=== PATIENT | male | born 1975 | race Caucasian/White ===

== ENCOUNTER 2017-11-04 06:56 | Day surgery (SDC) | payer OTHER ==
--- NOTE | 2017-11-03 10:20 | HP ---
HISTORY OF PRESENT ILLNESS: The patient is a 42-year-old male with a greater than 2 month history of a mass over his left olecranon without specific injury, but he normally does vigorous activities. [place] has had persistent symptoms despite rest, restriction of activities, anti-inflammatory medications, padding and 2 cortisone injections. Approximately 2 weeks ago he presented with recurrence of the s welling and some redness which was thought to be possible infection, but cultures were negative. He has had prompt recurrence despite aspiration and continues to have symptoms which are interfering wit h his day-to-day activities. PAST MEDICAL HISTORY: The patient is otherwise in good health. CURRENT MEDICATIONS: He normally takes no routine medications. ALLERGIES: PENICILLIN. PHYSICAL EXAMINATION: GENERAL: Reveals a healthy male. HEENT: Unremarkable. NECK: Supple. CHEST: Clear. HEART: Regular rate and rhythm. ABDOMEN: Soft, nontender. RECTAL/GENITAL: Exams are deferred. EXTREMITIES: Pertinent findings of the left elbow. There is a lemon-sized swelling over the left ol ecranon bursa. There is mild warmth and mild erythema. No ecchymosis. There is full range of motio n. There is minimal tenderness. There is full range of motion. There is moderate fluctuance. Neur ovascular exam is intact. LABORATORY AND X-RAY FINDINGS: X-rays of the elbow are normal except for soft tissue swelling. IMPRESSION: Chronic olecranon bursitis, left elbow. PLAN: Left olecranon bursectomy. The nature of the surgery, length of recovery, and potential compl ications such as infection, loss of motion, incomplete relief, thromboembolic phenomena, recurrent se mayela formation, neurovascular injury and need for additional treatment or repeat surgery have been di scussed in detail.
[2017-11-03 11:15] VITALS: BMI 31.6
[2017-11-04] MEDS ORDERED: Clindamycin/D5W 900 mg/50 ml Premix Bag ONE (07:27)
[2017-11-04] MEDS ORDERED: Fentanyl 100 MCG/2 ML VIAL ONE ×2 (08:16→10:05)
[2017-11-04] MEDS ORDERED: Sodium Chloride 0.9% 0 ML ONE (08:21)
[2017-11-04] MEDS ORDERED: Neomycin-Polymyxin 1 ML AMP ONE (08:21)
[2017-11-04] MEDS ORDERED: Bacitracin Zinc Ointment 30 gm TUBE ONE (08:21)
[2017-11-04] MEDS ORDERED: Bupivacaine HCl 0.5%/Epinephrine 1:200,000/PF 30 ml Vial ONE (08:41)
--- NOTE | 2017-11-04 11:30 | OP ---
DATE OF PROCEDURE: 11/04/2017 SURGEON: Juma Yuen M.D. ANESTHESIA: General. PREOPERATIVE DIAGNOSIS: Chronic left olecranon bursitis. POSTOPERATIVE DIAGNOSIS: Chronic left olecranon bursitis. PROCEDURE: Left olecranon bursectomy. NARRATIVE REPORT: After satisfactory anesthesia was induced. In supine position, the patient was pl aced in lateral decubitus position, this position held with the yu bag. He was then prepped and dr aped in the routine manner and the arm draped over a pillow. Left arm was elevated, exsanguinated wi th an Esmarch bandage, and tourniquet inflated to 250 mmHg. A longitudinal incision was made over the distal arm over the olecranon bursa into the proximal forearm, carried down to subcutaneous tissues. Bleeding points controlled with the cautery. Full thickness medial and lateral flaps were develope d and with tedious dissection, the mass was excised in its entirety and peeled off the fascia over th e triceps and the olecranon and sent to pathology. There were no obvious signs of infection. The wo und was then thoroughly irrigated. The wound was infiltrated with 30 mL of 0.5% Marcaine with epinep hrine. A small Nam drain was placed in the wound and brought out through the proximal wound and the subcutaneous tissues closed over the drain with interrupted 2-0 Vicryl. Skin was closed with sta ple gun. Sterile bulky compressive dressing was applied and the tourniquet deflated after 33 minutes . The hand promptly pinked up and the patient was then immobilized in a long arm plaster splint. He was placed into an arm sling and awakened, taken to recovery room in stable condition. There were n o apparent intraoperative complications. ESTIMATED BLOOD LOSS: Negligible. The patient will be discharged home in satisfactory condition. He was instructed on ice, elevation, and given written cast care instructions. He is given a prescription for Lapoint 10 for pain, 40 table ts. He will be rechecked in my office in 6 days or sooner if there are any problems prior to that ti me.
== END 2017-11-04 11:15 | disposition home or self-care (01) ==
LOC: SDC 06:56
PROVIDERS: ATTEND Orthopaedic Surgery
PROC: 0MB40ZZ Excision of Left Elbow Bursa and Ligament, Open Approach (ICD-10-PCS; principal; 2017-11-04)
DX: M70.22 Olecranon bursitis, left elbow (principal); Z88.0 Allergy status to penicillin
CPT/HCPCS: 88304; 96374; A4216; J0670; J3010; J3490

== ENCOUNTER 2022-09-24 17:30 | Outpatient (CLI) | payer BC | END 2022-09-24 17:31 | disposition home or self-care (01) | LOC: SLEEPLAB 17:30 | DX: G47.33 Obstructive sleep apnea (adult) (pediatric) (principal); R53.83 Other fatigue; E66.9 Obesity, unspecified; R06.83 Snoring; G47.00 Insomnia, unspecified; R35.1 Nocturia; I10 Essential (primary) hypertension; K21.9 Gastro-esophageal reflux disease without esophagitis; Z68.37 Body mass index [BMI] 37.0-37.9, adult | CPT/HCPCS: 95800 ==

== ENCOUNTER 2024-01-07 13:07 | Inpatient (IN) | payer BC ==
[2024-01-07] MEDS ORDERED: Guaifenesin DM 100-10/5 ML UDCUP PO PRN (13:27)
[2024-01-07] MEDS ORDERED: Ondansetron PF 4 MG/2 ML Vial IVP PRN (13:27)
[2024-01-07] MEDS ORDERED: Senokot S 8.6-50 MG TAB PO PRN (13:27)
[2024-01-07] MEDS ORDERED: dilTIAZem 125 MG in Sodium Chloride 0.9% 100 ML IVPB SCH (13:45)
[2024-01-07 13:47] VITALS: BMI 33.9
[2024-01-07 14:26] LABS: Alcohol Less than 10.0 mg/dL (Less than 10); CRP,High Sensitivity (Inhouse) 4.51 mg/dL (< or = 0.5); Magnesium 1.8 mg/dL (1.6-2.6)
[2024-01-07] MEDS: dilTIAZem 25 MG/5 ML VIAL SLOW IVP SCH (15:37)
[2024-01-07] MEDS: Diltiazem HCl/D5W 125 ML IVPB SCH (15:38)
[2024-01-07] MEDS: Piperacillin/Tazobactam 3.375 GM in Sodium Chloride 0.9% 100 ML IVPB SCH ×2 (15:38→20:26)
[2024-01-07] MEDS: Acetaminophen 325 MG TAB PO PRN (15:40)
[2024-01-07] MEDS: Enoxaparin 40 MG (0.4 mL) SYRINGE SC SCH (21:04)
[2024-01-07 23:12] LABS: Amphetamine Not Detected (NotDetected); Barbiturates Screen Not Detected (NotDetected); Benzodiazepine Screen Not Detected (NotDetected); Cocaine Metabolite Screen Not Detected (NotDetected); Methadone Not Detected (NotDetected); Methamphetamine Not Detected (NotDetected); Opiate Screen Not Detected (NotDetected); Oxycodone Screen Not Detected (NotDetected); Phencyclidine (PCP) Not Detected (NotDetected); THC/Cannabinoid Screen Not Detected (NotDetected); Tricyclic Screen Not Detected (NotDetected)
[2024-01-08] MEDS: Digoxin 0.5 MG/2 ML AMP SLOW IVP SCH (01:13)
[2024-01-08] MEDS: Ibuprofen 100 MG/5 ML UDCUP PO SCH (01:14)
[2024-01-08 06:37] LABS: #Basophils 0.06 10x3/uL (0.0-0.2); %Basophils 0.9 % (0.0-1.0); %Eosinophils 3.3 % (0.0-10.0); %Lymphocytes 27.5 % (21.0-51.0); %Monocytes 15.7 % (0.0-10.0); %Neutrophils 52.4 % (42.0-75.0); Hematocrit 50.9 % (42.0-52.0); Hemoglobin 17.4 g/dL (14.0-18.0); Mean Corpuscular HGB CONC 34.2 g/dL (32.0-36.0); Mean Corpuscular Hemoglobin 29.5 pg (27.0-31.0); Mean Corpuscular Volume 86.4 fL (78.0-98.0); Mean Platelet Volume 10.6 fL (7.4-10.4); Platelet Count 194 10x3/uL (130-400); RBC Distribution Width 14.8 % (11.5-14.5); Red Blood Cell (RBC) Count 5.89 mill/uL (4.70-6.10)
[2024-01-08 06:57] LABS: Anion Gap 15 mmol/L (10-20); BUN (Urea Nitrogen) 9 mg/dL (8.9-20.6); Calc. Creatinine Clearance 128 mL/min (70-130); Calcium 8.7 mg/dL (7.8-10.44); Carbon Dioxide 18 mmol/L (22-29); Chloride 110 mmol/L (98-107); Estimated GFR 78; Glucose 80 mg/dL (70-105); Sodium 139 mmol/L (136-145)
[2024-01-08] MEDS: Enoxaparin 40 MG (0.4 mL) SYRINGE SC SCH (08:37)
[2024-01-08] MEDS: Pantoprazole DR 40 MG TAB PO SCH (08:40)
[2024-01-08] MEDS ORDERED: Iopamidol-370 76% 500 ML MDV (1 ML CHARGE) ONE (15:17)
[2024-01-08] MEDS ORDERED: PROPOFOL 200 MG/20 ML VIAL ONE (17:28)
[2024-01-08] MEDS ORDERED: Lidocaine 1% PF 5 ML VIAL ONE (17:28)
[2024-01-08] MEDS: Apixaban 5 MG TAB PO SCH (20:10)
[2024-01-09 04:30] LABS: Hemoglobin 16.3 g/dL (14.0-18.0); Mean Corpuscular HGB CONC 33.3 g/dL (32.0-36.0); Mean Corpuscular Hemoglobin 29.4 pg (27.0-31.0); Mean Corpuscular Volume 88.4 fL (78.0-98.0); Mean Platelet Volume 10.3 fL (7.4-10.4); Platelet Count 193 10x3/uL (130-400); RBC Distribution Width 14.8 % (11.5-14.5); Red Blood Cell (RBC) Count 5.54 mill/uL (4.70-6.10)
[2024-01-09 04:36] LABS: Anion Gap 14 mmol/L (10-20); BUN (Urea Nitrogen) 9 mg/dL (8.9-20.6); Calc. Creatinine Clearance 153 mL/min (70-130); Calcium 8.4 mg/dL (7.8-10.44); Carbon Dioxide 20 mmol/L (22-29); Chloride 108 mmol/L (98-107); Estimated GFR 97; Glucose 75 mg/dL (70-105); Sodium 138 mmol/L (136-145)
[2024-01-09 06:14] LABS: Anisocytosis SLIGHT = 6-15 cells HPF (0-5); Band 6 % (5-11); Eosinophils 3 % (0-10); Lymphocytes 37 % (21-51); Macrocytosis SLIGHT = 6-15 cells HPF (0-5); Monocytes 27 % (0-10); Neutrophil 23 % (42-75); Platelet Adequacy Comment Platelets Normal; Polychromasia SLIGHT = 2-3 cells HPF (0-2); Reactive Lymphocytes 5 % (0-10); Smudge Cells 29.7 %
[2024-01-09 09:46] VITALS: BP 145/98; TEMP 98.2
== END 2024-01-09 11:06 | disposition home or self-care (01) | DRG 308 ==
LOC: OBSVTOIN 13:07 → 2NO 13:07
PROVIDERS: ADMIT Hospitalist; ATTEND Internal Medicine
PROC: 5A2204Z Restoration of Cardiac Rhythm, Single (ICD-10-PCS; 2024-01-08)
PROC: B24BZZ4 Ultrasonography of Heart with Aorta, Transesophageal (ICD-10-PCS; principal; 2024-01-09)
DX: I48.0 Paroxysmal atrial fibrillation (principal); J18.9 Pneumonia, unspecified organism; L03.116 Cellulitis of left lower limb; Z88.0 Allergy status to penicillin; K21.9 Gastro-esophageal reflux disease without esophagitis; G47.33 Obstructive sleep apnea (adult) (pediatric); Z98.890 Other specified postprocedural states; F10.20 Alcohol dependence, uncomplicated; F17.200 Nicotine dependence, unspecified, uncomplicated
CPT/HCPCS: 36415; 71275; 80048; 80306; 80307; 83735; 84443; 85025; 85379; 86141; 87040; 92960; 93005; 93306; 93312; J1160; J1650; J2543; J2704; Q9967

== ENCOUNTER 2025-02-25 12:52 | Inpatient (IN) | payer BC ==
[2025-02-25] MEDS: Pantoprazole 40 MG DR.TAB PO SCH (11:28)
[2025-02-25 14:36] VITALS: BMI 34.5
[2025-02-25] MEDS ORDERED: Electrolyte Replacement Protocol 1 EACH FS SCH (15:45)
[2025-02-25] MEDS ORDERED: Magnesium Sulfate In Water 4 GM in Premix 1 BAG IVPB PRN (16:15)
[2025-02-25] MEDS ORDERED: Potassium Chloride 20 MEQ in Premix 1 BAG IVPB PRN (16:15)
[2025-02-25] MEDS: Multivit, Therapeutic 1 TAB PO SCH (17:32)
[2025-02-25] MEDS: Diltiazem HCl/D5W 125 MG in Premix 1 BAG IVPB SCH (17:33)
[2025-02-25] MEDS: Folic Acid 1 MG TAB PO SCH (17:56)
[2025-02-25 18:21] LABS: Cardiac Risk 4.4 (Less than 4.5); Cholesterol 170 mg/dl (< 200 Desired); HDL Cholesterol 39 mg/dL (>60 Neg Risk); LDL Cholesterol, Calculated 104 mg/dL; Magnesium 1.9 mg/dL (1.6-2.6); Triglycerides 135 mg/dL (Less than 150)
[2025-02-25 19:33] LABS: Anion Gap 15 mmol/L (10-20); BUN (Urea Nitrogen) 13 mg/dL (8.9-20.6); Calc. Creatinine Clearance 156 mL/min (70-130); Calcium 8.7 mg/dL (7.8-10.44); Carbon Dioxide 16 mmol/L (22-29); Chloride 113 mmol/L (98-107); Glucose 242 mg/dL (70-105); Potassium 4.4 mmol/L (3.5-5.1); Sodium 140 mmol/L (136-145)
[2025-02-25] MEDS: PHOS-NAK 1 PKT PACK PO PRN (19:44)
[2025-02-25] MEDS: Oseltamivir 75 MG CAP PO SCH (19:47)
[2025-02-25] MEDS: Amiodarone 200 MG TAB PO SCH (21:33)
[2025-02-25] MEDS: Apixaban 5 MG TAB PO SCH (21:34)
[2025-02-25] MEDS: Magnesium 2 GM/50 ML(in water) 2 GM in Premix 1 BAG IVPB SCH (21:58)
[2025-02-26 01:53] LABS: Calcium 8.9 mg/dL (7.8-10.44); Magnesium 2.4 mg/dL (1.6-2.6); Potassium 3.8 mmol/L (3.5-5.1)
[2025-02-26] MEDS: Benzonatate 100 MG CAP PO PRN (02:19)
[2025-02-26 05:07] LABS: #Basophils Less than 0.03 10x3/uL (0.0-0.2); #Eosinophils Less than 0.03 10x3/uL (0.0-0.7); #Monocytes 1.10 10x3/uL (0.11-0.59); #Neutrophils 6.06 10x3/uL (1.40-6.50); %Basophils 0.1 % (0.0-1.0); %Eosinophils 0.1 % (0.0-10.0); %Lymphocytes 21.1 % (21.0-51.0); %Monocytes 12.0 % (0.0-10.0); %Neutrophils 66.4 % (42.0-75.0); Hematocrit 46.3 % (42.0-52.0); Hemoglobin 15.7 g/dL (14.0-18.0); Mean Corpuscular Hemoglobin 29.8 pg (27.0-31.0); Mean Corpuscular Volume 88.0 fL (78.0-98.0); Platelet Count 231 10x3/uL (130-400); Red Blood Cell (RBC) Count 5.26 mill/uL (4.70-6.10); White Blood Cell (WBC) Count 9.14 10x3/uL (4.8-10.8)
[2025-02-26 05:34] LABS: ALT (SGPT) 24 U/L (Less than 45); AST (SGOT) 30 U/L (11-34); Albumin 3.4 g/dL (3.1-4.5); Alkaline Phosphatase 49 U/L (40-110); Anion Gap 11 mmol/L (10-20); BUN (Urea Nitrogen) 8 mg/dL (8.9-20.6); Bilirubin, Total 0.4 mg/dL (0.3-1.2); Calc. Creatinine Clearance 193 mL/min (70-130); Calcium 8.9 mg/dL (7.8-10.44); Carbon Dioxide 18 mmol/L (22-29); Chloride 112 mmol/L (98-107); Globulin 3.5 g/dL (2.4-3.5); Glucose 138 mg/dL (70-105); Potassium 3.9 mmol/L (3.5-5.1); Sodium 137 mmol/L (136-145)
[2025-02-26] MEDS ORDERED: Oseltamivir 75 MG CAP PO SCH (09:00)
[2025-02-26] MEDS ORDERED: Enoxaparin 40 MG (0.4 mL) SYRINGE SC SCH (09:00)
[2025-02-26] MEDS: Amiodarone 200 MG TAB PO SCH (09:45)
[2025-02-26] MEDS: Multivit, Therapeutic 1 TAB PO SCH (09:46)
[2025-02-26] MEDS: Folic Acid 1 MG TAB PO SCH (09:46)
[2025-02-26] MEDS: Pantoprazole 40 MG DR.TAB PO SCH (11:40)
[2025-02-26] MEDS: Guaifenesin DM 100-10/5 ML UDCUP PO PRN (22:39)
[2025-02-27 08:36] LABS: Anion Gap 15 mmol/L (10-20); Carbon Dioxide 21 mmol/L (22-29); Chloride 106 mmol/L (98-107); Potassium 3.5 mmol/L (3.5-5.1); Sodium 138 mmol/L (136-145)
[2025-02-27 10:17] LABS: Magnesium 1.9 mg/dL (1.6-2.6)
[2025-02-27] MEDS: Metoprolol Succinate XL 50 MG ER.TAB PO SCH (10:47)
[2025-02-27 15:57] VITALS: TEMP 98.6
[2025-02-27 20:16] VITALS: BP 139/94
[2025-02-28] MEDS ORDERED: Thiamine 100 MG TAB PO SCH (09:00)
== END 2025-02-27 18:49 | disposition home or self-care (01) | DRG 310 ==
LOC: 2NO 13:49
PROVIDERS: ADMIT Internal Medicine; ATTEND Internal Medicine
DX: I48.0 Paroxysmal atrial fibrillation (principal); E78.5 Hyperlipidemia, unspecified; K21.9 Gastro-esophageal reflux disease without esophagitis; J11.1 Influenza due to unidentified influenza virus with other respiratory manifestations; G93.31 Postviral fatigue syndrome; Z79.82 Long term (current) use of aspirin; Z79.899 Other long term (current) drug therapy; Z98.890 Other specified postprocedural states
CPT/HCPCS: 36415; 80048; 80051; 80053; 80061; 83036; 83735; 84100; 84443; 85025; J0282; J3411; J3475; J7050; J7070